=== PATIENT | male | born 1975 | race Caucasian/White ===

== ENCOUNTER 2017-12-26 18:20 | Emergency (ER) | payer OTHER ==
[~2017-12-26] VITALS: Ht 182.9 cm; Wt 100.0 kg
[2017-12-26 18:25] VITALS: BP 130/74; TEMP 99.1
[2017-12-26] MEDS ORDERED: PROZAC 20MG20 MG PO (18:29)
[2017-12-26] MEDS ORDERED: ZOFRAN ODT4 MG PO (19:51)
[2017-12-26 20:18] VITALS: PULSE 86
== END 2017-12-26 20:18 | disposition home or self-care (01) ==
LOC: COL.ER 18:20
DX: S09.90XA Unspecified injury of head, initial encounter (principal); R11.0 Nausea; F41.9 Anxiety disorder, unspecified; F32.9 Major depressive disorder, single episode, unspecified; Z90.49 Acquired absence of other specified parts of digestive tract; V49.40XA Driver injured in collision with unspecified motor vehicles in traffic accident, initial encounter

== ENCOUNTER → 2018-07-14 | Outpatient (CLI) | payer OTHER ==
[~2018-07-14] MED LIST: PROZAC 20MG20 MG PO; ZOFRAN ODT4 MG PO
== END ==
LOC: BHSO 13:49
DX: F43.10 Post-traumatic stress disorder, unspecified (principal)

== ENCOUNTER → 2018-08-03 | Outpatient (CLI) | payer OTHER | LOC: BHSO 15:54 | DX: F43.10 Post-traumatic stress disorder, unspecified (principal) ==

== ENCOUNTER → 2018-08-24 | Outpatient (CLI) | payer OTHER | LOC: BHSO 15:56 | DX: F43.10 Post-traumatic stress disorder, unspecified (principal) ==

== ENCOUNTER → 2018-09-07 | Outpatient (CLI) | payer OTHER | LOC: BHSO 15:57 | DX: F43.10 Post-traumatic stress disorder, unspecified (principal) ==

== ENCOUNTER → 2018-09-28 | Outpatient (CLI) | payer OTHER | LOC: BHSO 16:02 | DX: F43.9 Reaction to severe stress, unspecified (principal) ==

== ENCOUNTER → 2018-10-05 | Outpatient (CLI) | payer OTHER | LOC: BHSO 15:59 | DX: F43.10 Post-traumatic stress disorder, unspecified (principal) ==

== ENCOUNTER → 2018-10-19 | Outpatient (CLI) | payer OTHER | LOC: BHSO 15:57 | DX: F43.10 Post-traumatic stress disorder, unspecified (principal) ==

== ENCOUNTER → 2018-11-10 | Outpatient (CLI) | payer OTHER | LOC: BHSO 15:43 | DX: F43.10 Post-traumatic stress disorder, unspecified (principal) ==

== ENCOUNTER → 2018-11-21 | Outpatient (CLI) | payer OTHER | LOC: BHSO 16:02 | DX: F43.10 Post-traumatic stress disorder, unspecified (principal) ==

== ENCOUNTER → 2018-12-05 | Outpatient (CLI) | payer OTHER | LOC: BHSO 16:02 | DX: F43.10 Post-traumatic stress disorder, unspecified (principal) ==

== ENCOUNTER → 2018-12-14 | Outpatient (CLI) | payer OTHER | LOC: BHSO 16:00 | DX: F43.10 Post-traumatic stress disorder, unspecified (principal) ==

== ENCOUNTER → 2018-12-28 | Outpatient (CLI) | payer OTHER | LOC: BHSO 15:43 | DX: F43.10 Post-traumatic stress disorder, unspecified (principal) ==

== ENCOUNTER → 2019-01-18 | Outpatient (CLI) | payer OTHER | LOC: BHSO 16:00 | DX: F43.10 Post-traumatic stress disorder, unspecified (principal) ==

== ENCOUNTER → 2019-02-08 | Outpatient (CLI) | payer OTHER | LOC: BHSO 16:02 | DX: F43.10 Post-traumatic stress disorder, unspecified (principal) ==

== ENCOUNTER → 2019-02-22 | Outpatient (CLI) | payer OTHER | LOC: BHSO 15:58 | DX: F43.10 Post-traumatic stress disorder, unspecified (principal) ==

== ENCOUNTER → 2019-04-19 | Outpatient (CLI) | payer OTHER | LOC: BHSO 15:57 | DX: F43.10 Post-traumatic stress disorder, unspecified (principal) ==

== ENCOUNTER → 2019-05-10 | Outpatient (CLI) | payer OTHER | LOC: BHSO 16:02 | DX: F43.10 Post-traumatic stress disorder, unspecified (principal) ==